=== PATIENT | female | born 1960 | race Caucasian/White ===

== ENCOUNTER 2024-03-13 12:50 | Inpatient (IN) | payer BC ==
[2024-03-13 13:21] LABS: BASOPHILS ABSOLUTE AUTO 0.05 10^3/uL (0.00-0.10); BASOPHILS PERCENT AUTO 0.7 % (0.0-1.0); EOSINOPHILS ABSOLUTE AUTO 0.09 10^3/uL (0.10-0.30); EOSINOPHILS PERCENT AUTO 1.3 % (1.0-3.0); HEMOGLOBIN 15.7 g/dL (12.0-16.0); IMMATURE GRAN ABSOLUTE AUTO 0.03 10^3/uL (0.00-0.50); IMMATURE GRAN PERCENT AUTO 0.4 % (0.0-5.0); LYMPHOCYTES ABSOLUTE AUTO 1.79 10^3/uL (1.00-4.00); LYMPHOCYTES PERCENT AUTO 25.9 % (20.0-40.0); MEAN CORPUSCULAR HEMOGLOBIN 30.6 pg (27.0-31.0); MEAN CORPUSCULAR HGB CONC 33.4 g/dL (32.0-36.0); MEAN CORPUSCULAR VOLUME 91.6 fL (82.0-92.0); MEAN PLATELET VOLUME 8.4 fL (7.4-10.4); MONOCYTES PERCENT AUTO 5.8 % (2.0-8.0); NEUTROPHILS ABSOLUTE AUTO 4.55 10^3/uL (2.50-7.00); NEUTROPHILS PERCENT AUTO 65.9 % (50.0-70.0); PLATELET COUNT,PLT 246 10^3/uL (150-400); RED BLOOD CELL COUNT 5.13 10^6/uL (3.80-5.50); RED CELL DISTRIBUTION WIDTH 11.7 % (11.5-14.5); WHITE BLOOD CELL COUNT,WBC 6.91 10^3/uL (5.00-10.00)
[2024-03-13 13:38] LABS: ALBUMIN 3.61 g/dL (3.40-5.00); ANION GAP 12.6 mmol/L (5-15); BILIRUBIN TOTAL 0.4 mg/dL (0.2-1.0); CALCIUM 9.2 mg/dL (8.7-10.3); CREATININE 0.63 mg/dL (0.51-1.17); EST CRCL DRUG DOSING (CG) 72.29 mL/min; POTASSIUM,K 3.6 mmol/L (3.5-5.1); PROTEIN TOTAL,TP 7.4 g/dL (6.4-8.2)
[2024-03-13] MEDS: Sodium Chloride 0.9% 100 ML IV SCH (14:22)
[2024-03-13] MEDS: Iopamidol 755 Mg/ML 100 ML Bottle IV ONE (14:22)
[2024-03-13] MEDS ORDERED: Ondansetron 4 MG/2 ML SDV IV PRN (17:45)
[2024-03-13] MEDS ORDERED: Albuterol 0.083% 2.5 MG/3 ML Neb Soln NEB PRN (17:45)
[2024-03-13] MEDS ORDERED: Acetaminophen/HYDROcodone 325-5 MG Tab PO PRN (17:45)
[2024-03-13] MEDS: Acetaminophen 325 MG Tab PO PRN (18:30)
[2024-03-13] MEDS: Rivaroxaban 10 MG Tab PO SCH (19:54)
[2024-03-14 07:21] LABS: HEMATOCRIT 43.6 % (37.0-47.0); HEMOGLOBIN 14.7 g/dL (12.0-16.0); MEAN CORPUSCULAR HEMOGLOBIN 30.7 pg (27.0-31.0); MEAN CORPUSCULAR HGB CONC 33.7 g/dL (32.0-36.0); MEAN PLATELET VOLUME 8.3 fL (7.4-10.4); PLATELET COUNT,PLT 208 10^3/uL (150-400); RED BLOOD CELL COUNT 4.79 10^6/uL (3.80-5.50); RED CELL DISTRIBUTION WIDTH 11.8 % (11.5-14.5); WHITE BLOOD CELL COUNT,WBC 6.25 10^3/uL (5.00-10.00)
[2024-03-14 07:36] LABS: ALBUMIN 3.17 g/dL (3.40-5.00); ANION GAP 12.4 mmol/L (5-15); BILIRUBIN TOTAL 0.6 mg/dL (0.2-1.0); CALCIUM 8.4 mg/dL (8.7-10.3); CREATININE 0.69 mg/dL (0.51-1.17); POTASSIUM,K 4.4 mmol/L (3.5-5.1); PROTEIN TOTAL,TP 6.6 g/dL (6.4-8.2)
[2024-03-14] MEDS: Metoprolol Succinate 25 MG Tab.ER PO SCH (08:13)
[2024-03-14] MEDS: Lisinopril 10 MG Tab PO SCH (08:13)
[2024-03-14] MEDS: Fluticasone NASAL Spray 16 GM Bottle NASBOTH PRN (11:31)
[2024-03-15] MEDS ORDERED: Polyethylene Glycol 3350 Powder 17 GM Packet PO PRN (08:52)
[2024-03-15] MEDS: Heparin Sodium/D5W 250 ML IV SCH (16:21)
[2024-03-15 17:05] VITALS: BP 135/75; PULSE 83
== END 2024-03-15 17:20 | DRG 134 ==
LOC: KA.ED 12:50 → KA.MS 15:22
PROVIDERS: ADMIT Internal Medicine; ATTEND Internal Medicine
DX: I26.02 Saddle embolus of pulmonary artery with acute cor pulmonale (principal); J96.01 Acute respiratory failure with hypoxia; I82.403 Acute embolism and thrombosis of unspecified deep veins of lower extremity, bilateral; I10 Essential (primary) hypertension; K21.9 Gastro-esophageal reflux disease without esophagitis; M19.90 Unspecified osteoarthritis, unspecified site; G43.909 Migraine, unspecified, not intractable, without status migrainosus; Z79.01 Long term (current) use of anticoagulants; Z79.899 Other long term (current) drug therapy; Z87.19 Personal history of other diseases of the digestive system; Z90.89 Acquired absence of other organs; Z98.49 Cataract extraction status, unspecified eye; Z98.890 Other specified postprocedural states
CPT/HCPCS: 36415; 71275; 80053; 83880; 84484; 85025; 85027; 85379; 85730; 93005; 93010; 99223; 99233; 99239-GT; 99284; 99285; A9270-GY; J1644; J3490; Q3014; Q9967